=== PATIENT | female | born 1935 | race Caucasian/White ===

== ENCOUNTER 2016-08-21 12:50 | Inpatient (IN) | payer OTHER, MEDICARE ==
[~2016-08-21] VITALS: Ht 170.1 cm; Wt 72.8 kg
--- NOTE | ~2016-08-21 | EKG ---
[place], [place] ELECTROCARDIOGRAM REPORT NAME: MONICO LINK UNIT #: [id number] ROOM: 524 DOCTOR: GARCIA CHRISTENSEN MD BIRTHDATE: [birth year] DOS: 08/21/2016 TIME: 1307 in the afternoon. FINDINGS: Normal sinus rhythm with first degree AV block, left bundle branch block, abnormal electrocardiogram. GARCIA CHRISTENSEN MD CM:EKGRPT:ELECTROCARDIOGRAM REPORT 50 48 GARCIA CHRISTENSEN MD
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
--- NOTE | ~2016-08-21 | PR ---
[place], [place] PROGRESS NOTE NAME: MONICO LINK UNIT #: [id number] ROOM: 524 DOCTOR: GARCIA CHRISTENSEN MD BIRTHDATE: [birth year] DOS: 08/24/2016 SUBJECTIVE: She was seen in the Cardiology Department just prior to her stress test today, 08/24/2016. She is an 81-year-old woman who presented to the hospital on 08/21/2016 with a syncopal episode. She was found to have a left bundle-branch block and did have some chest discomfort prior to admission. On the monitor, she did have frequent PVCs for a short period of time, but these have since resolved. No ventricular tachycardia was seen. Cardiac troponin levels were all normal. PHYSICAL EXAMINATION: VITAL SIGNS: Today, her pulse is 74 and regular; blood pressure is 146/82. She is afebrile now, but did have a temperature of 99 overnight. She weighs 72.8 kilograms with a body mass index of 25.2. NECK: Supple. She has no jugular distention or hepatojugular reflux. CHEST: Clear. HEART: Regular rhythm. There is an S4 gallop present, but no S3. ABDOMEN: Soft. EXTREMITIES: Showed no edema. LABORATORY DATA: Hemoglobin is 11.6, white count 6900, platelet count 176,000. Sodium 143, potassium 3.8, BUN 27, creatinine 1.17. As noted, serial troponin levels have been unremarkable. IMPRESSION: 1. Unexplained syncope. 2. Atypical left bundle branch block pattern. 3. Essential hypertension. 4. Atypical chest pain. PLAN: We will evaluate her further with an echocardiogram and pharmacologic stress test. Further recommendations will depend upon the results of these cardiac studies. [place], [place] PROGRESS NOTE NAME: MONICO LINK UNIT #: [id number] ROOM: 524 DOCTOR: GARCIA CHRISTENSEN MD BIRTHDATE: [birth year] GARCIA CHRISTENSEN MD CM:PNTRANS 1002 [id number] GARCIA CHRISTENSEN MD 08/24/16 1048 interface
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
--- NOTE | ~2016-08-21 | ST ---
[place], [place] EXERCISE STRESS TEST REPORT [id number] UN[facility] #: [id number] ROOM: 524 DOCTOR: GARCIA CHRISTENSEN MD BIRTHDATE: [birth year] DOS: 08/24/2016 INDICATIONS: Syncope, left bundle branch block, precordial chest pain. PROCEDURE: The patient was given a rapid infusion of regadenoson 0.4 mg intravenously followed by a saline flush. She had minimal symptoms. She had an atypical left bundle branch block before, during and after the infusion without significant changes. Her resting heart rate of 75 octavio to 99. The resting blood pressure of 144/82 fell to 128/64. Symptoms resolved spontaneously. After the infusion of regadenoson, she was given radionuclide 40 seconds later. IMPRESSION: 1. Left bundle-branch block. 2. Well tolerated infusion of regadenoson. 3. Radionuclide injected. Please see the separate imaging report for further details of the patient's stress test results. GARCIA CHRISTENSEN MD CM:STRESS:EXERCISE STRESS TEST REPORT [id number] 1031 GARCIA CHRISTENSEN MD
--- NOTE | ~2016-08-21 | EKG ---
[place], [place] ELECTROCARDIOGRAM REPORT NAME: MONICO LINK UNIT #: [id number] ROOM: 524 DOCTOR: GARCIA CHRISTENSEN MD BIRTHDATE: [birth year] DOS: 08/22/2016 TIME: 08:09 in the morning. FINDINGS: Sinus rhythm at rate of 65 with left bundle branch block and secondary ST changes. Abnormal EKG. GARCIA CHRISTENSEN MD CM:EKGRPT:ELECTROCARDIOGRAM REPORT 50 20 GARCIA CHRISTENSEN MD
[2016-08-21 12:57] VITALS: BP 166/80
[2016-08-21 13:28] LABS: BASO # 0.1 10*3/uL (0.0-0.1); EOS # 0.2 10*3/uL (0.0-0.4); EOS % 2.8 % (1.0-4.0); HEMATOCRIT 37.7 % (37.0-47.0); HEMOGLOBIN 12.5 g/dl (12.0-16.0); IG # 0.1 10*3/uL (0.0-0.1); LYMPH # 1.6 10*3/uL (1.3-4.4); LYMPH % 18.6 % (27.0-41.0); MEAN CELL VOLUME 93.1 fl (81.0-99.0); MEAN CORPUSCULAR HGB 30.9 pg (27.0-31.0); MEAN CORPUSCULAR HGB CONC 33.2 g/dl (33.0-37.0); MEAN PLATELET VOLUME 9.9 fl (9.6-12.3); MONO # 0.5 10*3/uL (0.1-1.0); MONO % 6.3 % (3.0-9.0); NEUT # 5.9 10*3/uL (2.3-7.9); NEUT % 70.5 % (47.0-73.0); PLATELET COUNT AUTOMATED 189 10*3/uL (130-400); RED BLOOD COUNT 4.05 10*6/uL (4.10-5.10); RED CELL DISTRI WIDTH 12.7 % (0-14.5); WHITE BLOOD COUNT 8.4 10*3/uL (4.8-10.8)
[2016-08-21 13:37] LABS: PROTHROMBIN TIME 10.8 SECONDS (9.0-12.4)
[2016-08-21 13:45] VITALS: BP 190/68
[2016-08-21 13:49] LABS: ALBUMIN 3.9 gm/dl (3.1-4.5); BUN 33 mg/dl (7-24); CARBON DIOXIDE 28 mmol/L (21-32); CHLORIDE 103 mmol/L (98-107); EST GLOM FILT AFRICAN AMERICAN 51 ml/min; GLUCOSE 102 mg/dL (65-99); MAGNESIUM 1.6 mg/dL (1.5-2.1); POTASSIUM 3.6 mmol/L (3.5-5.1); SGOT/AST 12 IU/L (3-35); SGPT/ALT 15 U/L (12-78); SODIUM 141 mmol/L (136-145)
[2016-08-21 13:51] LABS: ALKALINE PHOSPHATASE 91 U/L (45-117); BILIRUBIN, TOTAL 0.5 mg/dl (0.2-1.0); CKMB 1.7 ng/ml (0.5-3.6); CPK 68 U/L (26-192); TOTAL PROTEIN 7.4 gm/dL (6.4-8.2)
[2016-08-21 13:52] LABS: C-REACTIVE PROTEIN < 0.29 MG/DL (0-0.3); TROPONIN I < 0.015 ng/ml (<0.045)
[2016-08-21 14:53] LABS: BILIRUBIN NEGATIVE (NEGATIVE); BLOOD TRACE-INTACT (NEGATIVE); CLARITY CLOUDY (CLEAR); COLOR YELLOW (YELLOW); GLUCOSE NEGATIVE (NEGATIVE); KETONE NEGATIVE (NEGATIVE); LEUKO ESTERASE 3+ (NEGATIVE); NITRITE NEGATIVE (NEGATIVE); PH 6.5 (5.0-9.0); PROTEIN TRACE (NEGATIVE); UROBILINOGEN 0.2 E.U./dl (0.2-1.0)
[2016-08-21 15:09] LABS: BACTERIA 4+; URINE REFLEX COMMENT YES (NO); WBC 21-30 wbc/hpf (0-5)
[2016-08-21 15:15] VITALS: BP 96/39
[2016-08-21 16:00] VITALS: BP 220/90
[2016-08-21 16:15] VITALS: BP 220/90
[2016-08-21] MEDS ORDERED: GLUCOPHAGE500 M1 PO (16:55)
[2016-08-21] MEDS ORDERED: ENALAPRIL5 MG PO (17:02)
[2016-08-21] MEDS ORDERED: IMDUR SA30 MG PO (17:03)
[2016-08-21] MEDS ORDERED: CARDIZEM CD240 M1 PO (17:03)
[2016-08-21] MEDS ORDERED: ZOCOR40 MG PO (17:04)
[2016-08-21] MEDS ORDERED: TENORETIC-25/501 TAB PO (17:05)
[2016-08-21 18:25] LABS: CKMB 2.6 ng/ml (0.5-3.6); CPK 86 U/L (26-192)
[2016-08-21 18:34] LABS: TROPONIN I < 0.015 ng/ml (<0.045)
[2016-08-21 20:00] VITALS: BP 140/54
[2016-08-22] VITALS: BP 160/65
[2016-08-22 00:25] LABS: CKMB 2.5 ng/ml (0.5-3.6); CPK 74 U/L (26-192)
[2016-08-22 00:29] LABS: TROPONIN I < 0.015 ng/ml (<0.045)
[2016-08-22 06:13] LABS: BASO # 0.1 10*3/uL (0.0-0.1); BASO % 0.6 % (0.0-1.0); EOS # 0.1 10*3/uL (0.0-0.4); EOS % 0.9 % (1.0-4.0); HEMATOCRIT 35.9 % (37.0-47.0); HEMOGLOBIN 11.9 g/dl (12.0-16.0); LYMPH # 1.4 10*3/uL (1.3-4.4); LYMPH % 17.5 % (27.0-41.0); MEAN CELL VOLUME 95.5 fl (81.0-99.0); MEAN CORPUSCULAR HGB 31.6 pg (27.0-31.0); MEAN CORPUSCULAR HGB CONC 33.1 g/dl (33.0-37.0); MEAN PLATELET VOLUME 9.5 fl (9.6-12.3); MONO # 0.6 10*3/uL (0.1-1.0); MONO % 6.8 % (3.0-9.0); NEUT % 73.8 % (47.0-73.0); PLATELET COUNT AUTOMATED 175 10*3/uL (130-400); RED BLOOD COUNT 3.76 10*6/uL (4.10-5.10); RED CELL DISTRI WIDTH 12.6 % (0-14.5); WHITE BLOOD COUNT 8.2 10*3/uL (4.8-10.8)
[2016-08-22 06:27] LABS: CKMB 1.7 ng/ml (0.5-3.6); CPK 72 U/L (26-192)
[2016-08-22 06:35] LABS: TROPONIN I < 0.015 ng/ml (<0.045)
[2016-08-22 06:36] LABS: INTERNATIONAL NORM RATIO 1.1 (2.0-3.5); PROTHROMBIN TIME 11.2 SECONDS (9.0-12.4)
[2016-08-22 06:38] LABS: ALBUMIN 3.3 gm/dl (3.1-4.5); MAGNESIUM 1.5 mg/dL (1.5-2.1); POTASSIUM 3.3 mmol/L (3.5-5.1)
[2016-08-22 06:47] LABS: BILIRUBIN, TOTAL 0.5 mg/dl (0.2-1.0); FREE T4 1.07 ng/dl (0.76-1.46); PHOSPHOROUS 2.9 mg/dL (2.5-4.9); THYROID STIM HORMONE (HS) 1.81 uIU/ml (0.358-4.75); TOTAL PROTEIN 6.6 gm/dL (6.4-8.2)
[2016-08-22 07:19] LABS: HEMOGLOBIN A1c 5.8 % (4.8-5.6)
[2016-08-22 08:00] VITALS: BP 188/70
[2016-08-22 08:13] LABS: FOLIC ACID 13.27 ng/mL (>5.38); VITAMIN D, 25-HYDROXY 43.1 ng/mL (30-100)
[2016-08-22 11:45] VITALS: BP 155/72
[2016-08-22 16:00] VITALS: BP 127/59
[2016-08-22 20:00] VITALS: BP 134/71
[2016-08-23] VITALS (8 sets, daily range): BP systolic 122–185; BP diastolic 61–82
[2016-08-23 08:42] LABS: ALBUMIN 3.6 gm/dl (3.1-4.5); BILIRUBIN, TOTAL 0.6 mg/dl (0.2-1.0); POTASSIUM 3.7 mmol/L (3.5-5.1); TOTAL PROTEIN 7.2 gm/dL (6.4-8.2)
[2016-08-24 00:24] VITALS: BP 138/70
[2016-08-24 00:25] VITALS: BP 160/70
[2016-08-24 06:34] LABS: BASO # 0.1 10*3/uL (0.0-0.1); BASO % 0.9 % (0.0-1.0); EOS # 0.2 10*3/uL (0.0-0.4); HEMATOCRIT 35.5 % (37.0-47.0); HEMOGLOBIN 11.6 g/dl (12.0-16.0); LYMPH # 1.2 10*3/uL (1.3-4.4); LYMPH % 17.2 % (27.0-41.0); MEAN CELL VOLUME 95.4 fl (81.0-99.0); MEAN CORPUSCULAR HGB 31.2 pg (27.0-31.0); MEAN CORPUSCULAR HGB CONC 32.7 g/dl (33.0-37.0); MEAN PLATELET VOLUME 9.7 fl (9.6-12.3); MONO # 0.6 10*3/uL (0.1-1.0); MONO % 8.5 % (3.0-9.0); NEUT # 4.9 10*3/uL (2.3-7.9); PLATELET COUNT AUTOMATED 176 10*3/uL (130-400); RED BLOOD COUNT 3.72 10*6/uL (4.10-5.10); WHITE BLOOD COUNT 6.9 10*3/uL (4.8-10.8)
[2016-08-24 07:02] LABS: POTASSIUM 3.8 mmol/L (3.5-5.1)
[2016-08-24 08:00] VITALS: BP 176/66
[2016-08-24 12:00] VITALS: BP 145/74
== END 2016-08-24 16:10 | disposition home or self-care (01) | DRG 312 ==
LOC: ED 12:50 → 5E 14:55 → EDHOLD 14:55 → 5E 15:20
PROVIDERS: Internal Medicine; Student in an Organized Health Care Education/Training Program
PROC: 3E033HZ Introduction of Radioactive Substance into Peripheral Vein, Percutaneous Approach (ICD-10-PCS; principal; 2016-08-24)
PROC: 4A02XM4 Measurement of Cardiac Total Activity, External Approach (ICD-10-PCS; principal; 2016-08-24)
DX: R55 Syncope and collapse (principal); N17.0 Acute kidney failure with tubular necrosis; R07.82 Intercostal pain; E78.5 Hyperlipidemia, unspecified; I10 Essential (primary) hypertension; E11.9 Type 2 diabetes mellitus without complications; Z96.653 Presence of artificial knee joint, bilateral; I45.4 Nonspecific intraventricular block; V49.9XXA Car occupant (driver) (passenger) injured in unspecified traffic accident, initial encounter; Y93.89 Activity, other specified; Y92.89 Other specified places as the place of occurrence of the external cause; Y99.8 Other external cause status

== ENCOUNTER 2018-06-16 11:38 | Emergency (ER) | payer MEDICARE ==
[~2018-06-16] VITALS: Ht 165.1 cm; Wt 72.6 kg
--- NOTE | ~2018-06-16 | EKG ---
[place], [place] ELECTROCARDIOGRAM REPORT NAME: MONICO LINK UNIT #: [id number] ROOM: DOCTOR: EPIPHANY DRAFT REPORT BIRTHDATE: [birth year] [facility] Test Date: 2018-06-16 Test Time: 15:07:43 Pat Name: MONICO LINK Department: Room: Gender: F Grainer Machine: Jolie Stearns : 1935 Requested By: MARIO DICKSON Order Number: [id number] Reading MD: Travis Billy MD Measurements Intervals [place] Rate: 63 P: 40 [place]: 233 QRS: 5 QRSD: 126 T: 70 QT: 430 QTc: 441 Interpretive Statements Sinus rhythm Prolonged [place] interval First degree block Left bundle branch block No previous ECG available for comparison Electronically Signed On 06-19-2018 4:32:47 PST by Travis Billy MD CM:EKGRPT:ELECTROCARDIOGRAM REPORT [id number] 0432 MARIO ZHANG DRAFT REPORT MARIO DICKSON MD
--- NOTE | ~2018-06-16 | EKG ---
[place], [place] ELECTROCARDIOGRAM REPORT NAME: MONICO LINK UNIT #: [id number] ROOM: DOCTOR: EPIPHANY DRAFT REPORT BIRTHDATE: [birth year] [facility] Test Date: 2018-06-16 Test Time: 12:22:19 Pat Name: MONICO LINK Department: Room: Gender: F Saddle And Side Wire Stitcher: : 1935 Requested By: MARIO DICKSON Order Number: [id number] Reading MD: Travis Billy MD Measurements Intervals [place] Rate: 64 P: 91 [place]: 243 QRS: 4 QRSD: 127 T: 57 QT: 439 QTc: 453 Interpretive Statements Sinus rhythm Prolonged [place] interval First degree block Left bundle branch block No previous ECG available for comparison Electronically Signed On 06-19-2018 4:32:12 PST by Travis Billy MD CM:EKGRPT:ELECTROCARDIOGRAM REPORT [id number] 0432 MARIO DICKSON MD EPIPHDEA DRAFT REPORT MARIO DICKSON MD
[~2018-06-16 11:38] MED LIST: CARDIZEM CD240 M1 PO; ENALAPRIL5 MG PO; GLUCOPHAGE500 M1 PO; IMDUR SA30 MG PO; TENORETIC-25/501 TAB PO; ZOCOR40 MG PO
[2018-06-16 12:11] LABS: BASO # 0.1 10*3/uL (0.0-0.1); BASO % 0.7 % (0.0-1.0); EOS # 0.2 10*3/uL (0.0-0.4); EOS % 2.2 % (1.0-4.0); HEMATOCRIT 33.9 % (37.0-47.0); HEMOGLOBIN 10.8 g/dl (12.0-16.0); LYMPH # 1.4 10*3/uL (1.3-4.4); LYMPH % 18.4 % (27.0-41.0); MEAN CELL VOLUME 99.1 fl (81.0-99.0); MEAN CORPUSCULAR HGB 31.6 pg (27.0-31.0); MEAN CORPUSCULAR HGB CONC 31.9 g/dl (33.0-37.0); MEAN PLATELET VOLUME 9.8 fl (9.6-12.3); MONO # 0.7 10*3/uL (0.1-1.0); MONO % 9.6 % (3.0-9.0); NEUT # 5.1 10*3/uL (2.3-7.9); NEUT % 68.8 % (47.0-73.0); PLATELET COUNT AUTOMATED 188 10*3/uL (130-400); RED BLOOD COUNT 3.42 10*6/uL (4.10-5.10); RED CELL DISTRI WIDTH 13.7 % (0-14.5); WHITE BLOOD COUNT 7.4 10*3/uL (4.8-10.8)
[2018-06-16 12:23] LABS: ACT PARTIAL THROMBO TIME 29.2 SECONDS (20.8-31.5); INTERNATIONAL NORM RATIO 1.1 (2.0-3.5)
[2018-06-16 12:30] LABS: ALBUMIN 3.3 gm/dl (3.1-4.5); ALKALINE PHOSPHATASE 110 U/L (45-117); BUN 36 mg/dl (7-24); CHLORIDE 106 mmol/L (98-107); POTASSIUM 3.8 mmol/L (3.5-5.1); SGOT/AST 12 IU/L (3-35); SGPT/ALT 20 U/L (12-78); SODIUM 143 mmol/L (136-145); TOTAL PROTEIN 7.1 gm/dL (6.4-8.2)
[2018-06-16 12:32] LABS: TROPONIN I < 0.015 ng/ml (<0.045)
[2018-06-16] MEDS ORDERED: ARTHRITIS PAI42.5 GM T (15:27)
[2018-06-16] MEDS ORDERED: VOLTAREN100 GM T (15:27)
== END 2018-06-16 15:19 | disposition home or self-care (01) ==
LOC: ED 11:38
PROVIDERS: Emergency Medicine
DX: M25.512 Pain in left shoulder (principal); R11.0 Nausea; M54.2 Cervicalgia; R06.00 Dyspnea, unspecified; R79.1 Abnormal coagulation profile; E11.9 Type 2 diabetes mellitus without complications; I10 Essential (primary) hypertension; E78.5 Hyperlipidemia, unspecified; Z79.899 Other long term (current) drug therapy; X58.XXXA Exposure to other specified factors, initial encounter; Y93.89 Activity, other specified; Y92.89 Other specified places as the place of occurrence of the external cause; Y99.8 Other external cause status

== ENCOUNTER → 2018-12-15 | Outpatient (CLI) | payer MEDICARE ==
[~2018-12-15] MED LIST changes: +ARTHRITIS PAI42.5 GM T; +VOLTAREN100 GM T
== END | disposition home or self-care (01) ==
LOC: RAD 10:28
DX: M85.862 Other specified disorders of bone density and structure, left lower leg (principal)

== ENCOUNTER 2019-03-04 18:43 | Inpatient (IN) | payer MEDICARE ==
[2019-03-04] VITALS (7 sets, daily range): BP systolic 170–222; BP diastolic 69–98
[~2019-03-04] VITALS: Ht 170.1 cm; Wt 75.5 kg
--- NOTE | ~2019-03-04 | EKG ---
[place], [place] ELECTROCARDIOGRAM REPORT NAME: MOINCO LINK UNIT #: [id number] ROOM: 405 DOCTOR: VICENTE DRAFT REPORT BIRTHDATE: [birth year] [facility] Test Date: 2019-03-04 Test Time: 18:43:16 Pat Name: MONICO LINK Department: Room: 405 Gender: F Director Of Exhibits: : 1935 Requested By: MARIO DICKSON Order Number: [id number] Reading MD: Trina Calloway MD Measurements Intervals [place] Rate: 74 P: -18 [place]: 205 QRS: 7 QRSD: 145 T: 116 QT: 406 QTc: 451 Interpretive Statements Sinus rhythm Left bundle branch block Baseline wander in lead(s) V6 Compared to ECG 06/16/2018 15:07:43 First degree AV block no longer present Electronically Signed On 03-05-2019 7:48:55 PST by Trina Calloway MD CM:EKGRPT:ELECTROCARDIOGRAM REPORT [id number] 0748 MARIO ZHANG DRAFT REPORT MARIO DICKSON MD
--- NOTE | ~2019-03-04 | ST ---
[place], [place] EXERCISE STRESS TEST REPORT [id number] UN[facility] #: [id number] ROOM: 405 DOCTOR: LACEY CEVALLOS,HARSHAD BIRTHDATE: [birth year] DOS: 03/06/2019 LEXISCAN STRESS TEST REFERRING PHYSICIAN: Dr. Padron. REASON FOR TEST: Chest pain. PHYSICAL EXAMINATION NECK: Supple. LUNGS: Clear anteriorly. HEART: Regular rhythm. PROTOCOL: Lexiscan protocol. Maximum heart rate 84. SYMPTOMS: The patient is chest pain free. EKG: Resting EKG showed sinus rhythm with nonspecific lateral T inversion and also poor R-wave progression. Stress EKG showed no new ischemia, occasional PVCs. CONCLUSION: Clinically, the patient is chest pain free. EKG: No ischemia. POST-STRESS COMPLICATIONS: None. The patient received a total of 0.4 mg Lexiscan. HARSHAD RAHMAN MD CM:STRESS:EXERCISE STRESS TEST REPORT [id number] 55 HARSHAD RAHMAN MD
--- NOTE | ~2019-03-04 | EKG ---
[place], [place] ELECTROCARDIOGRAM REPORT NAME: MONICO LINK UNIT #: [id number] ROOM: 405 DOCTOR: VIOLETTEANY DRAFT REPORT BIRTHDATE: [birth year] [facility] Test Date: 2019-03-04 Test Time: 23:12:38 Pat Name: MONICO LINK Department: Room: 405 Gender: F Commercial Energy Rater: : 1935 Requested By: MARIO DICSKON Order Number: [id number] Reading MD: Trina Calloway MD Measurements Intervals [place] Rate: 60 P: -53 RI: 232 QRS: 29 QRSD: 134 T: 149 QT: 387 QTc: 387 Interpretive Statements Sinus or ectopic atrial rhythm Atrial premature complex Prolonged [place] interval Left bundle branch block Compared to ECG 06/16/2018 15:07:43 Ectopic atrial rhythm now present Atrial premature complex(es) now present Sinus rhythm no longer present Electronically Signed On 03-05-2019 7:49:33 PST by Trina Calloway MD CM:EKGRPT:ELECTROCARDIOGRAM REPORT 0749 MARIO DICKSON MD EPIPHANY DRAFT REPORT MARIO DICKSON MD
--- NOTE | ~2019-03-04 | EKG ---
[place], [place] ELECTROCARDIOGRAM REPORT NAME: MONICO LINK UNIT #: [id number] ROOM: 405 DOCTOR: VICENTE DRAFT REPORT BIRTHDATE: [birth year] [facility] Test Date: 2019-03-05 Test Time: 01:16:49 Pat Name: MONICO LINK Department: Room: 405 Gender: F Commissions Coordinator: : 1935 Requested By: MARIO DICKSON Order Number: [id number] Reading MD: Trina Calloway MD Measurements Intervals [place] Rate: 58 P: 19 TN: 227 QRS: 13 QRSD: 138 T: QT: 433 QTc: 426 Interpretive Statements Sinus rhythm Prolonged [place] interval Left bundle branch block Compared to ECG 06/16/2018 15:07:43 No significant changes Electronically Signed On 03-05-2019 5:59:06 PST by Trina Calloway MD CM:EKGRPT:ELECTROCARDIOGRAM REPORT [id number] MARIO ZHANG DRAFT REPORT MARIO DICKSON MD
[2019-03-04 19:00] LABS: BASO # 0.1 10*3/uL (0.0-0.1); BASO % 1.3 % (0.0-1.0); EOS # 0.2 10*3/uL (0.0-0.4); EOS % 3.1 % (1.0-4.0); HEMATOCRIT 38.3 % (37.0-47.0); HEMOGLOBIN 12.1 g/dl (12.0-16.0); LYMPH # 1.7 10*3/uL (1.3-4.4); LYMPH % 25.4 % (27.0-41.0); MEAN CELL VOLUME 98.7 fl (81.0-99.0); MEAN CORPUSCULAR HGB 31.2 pg (27.0-31.0); MEAN CORPUSCULAR HGB CONC 31.6 g/dl (33.0-37.0); MONO # 0.6 10*3/uL (0.1-1.0); MONO % 8.6 % (3.0-9.0); NEUT # 4.1 10*3/uL (2.3-7.9); NEUT % 61.5 % (47.0-73.0); PLATELET COUNT AUTOMATED 198 10*3/uL (130-400); RED BLOOD COUNT 3.88 10*6/uL (4.10-5.10); WHITE BLOOD COUNT 6.7 10*3/uL (4.8-10.8)
[2019-03-04 19:12] LABS: ACT PARTIAL THROMBO TIME 27.9 SECONDS (20.0-32.1)
[2019-03-04 19:17] LABS: ALBUMIN 3.3 gm/dl (3.1-4.5); ALKALINE PHOSPHATASE 101 U/L (45-117); BUN 35 mg/dl (7-24); CHLORIDE 108 mmol/L (98-107); POTASSIUM 3.7 mmol/L (3.5-5.1); SGOT/AST 19 IU/L (3-35); SGPT/ALT 16 U/L (12-78); SODIUM 143 mmol/L (136-145)
[2019-03-04] MEDS ORDERED: ZOCOR40 MG PO (19:17)
[2019-03-04 19:18] LABS: TROPONIN I < 0.015 ng/ml (<0.045)
[2019-03-04] MEDS ORDERED: BAYER ASPIRIN C81 MG PO (19:18)
[2019-03-04] MEDS ORDERED: TYLENOL EXTRA500 M2 PO (19:20)
[2019-03-04] MEDS ORDERED: ELIQUIS5 M1 PO (19:21)
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
[2019-03-05] VITALS: BP 178/86
--- NOTE | 2019-03-05 07:23 | NUR ---
24 HR chart check completed.
[2019-03-05 07:36] LABS: CREATININE 1.1 mg/dL (0.55-1.02); PHOSPHOROUS 3.2 mg/dL (2.5-4.9); POTASSIUM 4.1 mmol/L (3.5-5.1)
[2019-03-05 08:00] VITALS: BP 168/80
--- NOTE | 2019-03-05 08:00 | NUR ---
DR DOMINGO HERE TO ASSESS PATIENT AND DISCUSS PLAN OF CARE. NEW ORDERS RECEIVED
--- NOTE | 2019-03-05 08:14 | NUR ---
MEDICATED WITH ZOFRAN IV PER PRN ORDER FOR COMPLAINTS OF NAUSEA. WILL MONITOR
--- NOTE | 2019-03-05 08:28 | NUR ---
DR REYES HERE TO ASSESS PATIENT AND DISCUSS PLAN OF CARE
--- NOTE | 2019-03-05 09:00 | NUR ---
RESTING IN BED WITH NO DISTRESS NOTED. RESPIRATIONS EASY. LUNGS DIMINISHED WITH FAINT WHEEZES. PULSE OX 94% RA. CALL LIGHT WITHIN REACH. NO VOICED COMPLAINTS
--- NOTE | 2019-03-05 10:40 | NUR ---
TRANSPORTED OFF FLOOR VIA WC FOR TESTING
--- NOTE | 2019-03-05 10:45 | NUR ---
RETURNED FROM TESTING. NO DISTRESS NOTED.
--- NOTE | 2019-03-05 11:00 | NUR ---
ORTHOS CHECKED LAYING 184/78 58 SITTING 180-70 60 STANDING 162/64 61 C/O DIZZINESS AND NAUSEA WITH ANY MOVEMENT
[2019-03-05 12:00] VITALS: BP 160/60
--- NOTE | 2019-03-05 13:00 | NUR ---
RESTING IN BED WITH NO DISTRESS NOTED. RESPIRATIONS EASY. CALL LIGHT WITHIN REACH. NO VOICED COMPLAINTS
[2019-03-05 16:00] VITALS: BP 133/58
--- NOTE | 2019-03-05 18:00 | NUR ---
BATHING IN BATHROOM WITH ASSIST OF DAUGHTER IN LAW
[2019-03-05 20:00] VITALS: BP 137/53
--- NOTE | 2019-03-05 20:25 | NUR ---
PT RESTING IN BED. RESP-EASY AND REGULAR. NO C/O AT THIS TIME. CALL LIGHT IN REACH. TOLERATED ROUTINE MED WITH NO PROBLEM. CALL LIGHT IN REACH. SEE SHIFT ASSESSMENT.
--- NOTE | 2019-03-05 22:00 | NUR ---
RESTING IN BED WITH EYES CLOSED. RESP-EASY AND REGULAR. CALL LIGHT IN REACH.
[2019-03-06] VITALS: BP 124/43
--- NOTE | 2019-03-06 00:15 | NUR ---
PT SLEEPING IN BED. RESP-EASY AND REGULAR. CALL LIGHT IN REACH. SEE SHIFT ASSESSMENT.
--- NOTE | 2019-03-06 03:50 | NUR ---
PT SLEEPING IN BED. RESP-EASY AND REGULAR. CALL LIGHT IN REACH.
--- NOTE | 2019-03-06 06:00 | NUR ---
RESTING IN BED. NO C/O AT THIS TIME. CALL LIGHT IN REACH.
[2019-03-06 06:11] LABS: BASO # 0.1 10*3/uL (0.0-0.1); BASO % 1.2 % (0.0-1.0); EOS # 0.2 10*3/uL (0.0-0.4); HEMATOCRIT 34.6 % (37.0-47.0); LYMPH # 1.6 10*3/uL (1.3-4.4); LYMPH % 27.6 % (27.0-41.0); MEAN CORPUSCULAR HGB 31.2 pg (27.0-31.0); MEAN CORPUSCULAR HGB CONC 31.8 g/dl (33.0-37.0); MEAN PLATELET VOLUME 9.6 fl (9.6-12.3); MONO # 0.5 10*3/uL (0.1-1.0); MONO % 8.1 % (3.0-9.0); NEUT # 3.6 10*3/uL (2.3-7.9); NEUT % 59.9 % (47.0-73.0); PLATELET COUNT AUTOMATED 186 10*3/uL (130-400); RED BLOOD COUNT 3.53 10*6/uL (4.10-5.10)
[2019-03-06 06:37] LABS: ALBUMIN 2.9 gm/dl (3.1-4.5); CREATININE 1.35 mg/dL (0.55-1.02); PHOSPHOROUS 2.8 mg/dL (2.5-4.9); POTASSIUM 3.5 mmol/L (3.5-5.1); TOTAL PROTEIN 6.1 gm/dL (6.4-8.2)
[2019-03-06 08:00] VITALS: BP 156/66
--- NOTE | 2019-03-06 08:55 | NUR ---
PATIENT TAKEN OFF FLOOR FOR STRESS TEST AT THIS TIME.
--- NOTE | 2019-03-06 09:00 | NUR ---
Hematologist Oncologist in to talk to patient. Patient states lives at home with son. There are few steps in the home. Physician: meredith spence Pharmacy: [facility] health services: none Patient's level of ADLs: INDEPENDENT Patient has working utilities: all working DME: cane Follow-up physician's appointment after d/c: will be made by hospitalist nurse director upon discharge Does patient want to access PORTAL?: no Discharge plan discussed with patient, she states he lives at home with her son, she is independent in adls and ambulation, has a cane at home if needed, she states she will return home when medically stable and denies any home needs. RUFINO PAZ
--- NOTE | 2019-03-06 09:43 | NUR ---
INFORMED SIGNED CONSENT OBTAINED FOR LEXISCAN STRESS TEST WITH DR RAHMAN. RESTING EKG LBBB BRADYACARDIA HR 58 BP 130/64. PULSE OX 93% LUNGS CLEAR. PT COMPLETED ONE MINUTE OF A LEXISCAN PROTOCOL WITH PT RECEIVING LEXISCAN 0.4MG IV OVER 10 SECONDS. PVC NOTED, NONDIAGNOSTIC ST CHANGES SEEN. PT C/O DIZZINESS WITH INJECTION. LAST RECOVERY HR OF 79 BP 118/64. PT IN STABLE CONDITION, WAITING WITH HER DAUGHTER FOR IMAGES.
[2019-03-06 12:00] VITALS: BP 172/72
[2019-03-06] MEDS ORDERED: LISINOPRIL10 M1 PO (15:31)
[2019-03-06] MEDS ORDERED: HYGROTON25 MG PO (15:31)
[2019-03-06] MEDS ORDERED: CARVEDILOL3.125 MG PO (15:31)
[2019-03-06 16:00] VITALS: BP 152/78
--- NOTE | 2019-03-06 16:14 | NUR ---
Discharge instructions reviewed with patient/family. Patient receptive and verbalizes understanding. Follow-up care arranged. Written instructions given to patient/family. HEPLOCK DISCONTINUED. PROFESSOR OF COMMUNICATION ARTS DISCONTINUED. PATIENT TAKEN OFF FLOOR VIA WHEELCHAIR. MARCUS TORREZ
== END 2019-03-06 16:14 | disposition home or self-care (01) | DRG 305 ==
LOC: ED 18:43 → EDHOLD 21:41 → 4E 21:41
PROVIDERS: Emergency Medicine; Student in an Organized Health Care Education/Training Program; ADMIT Family Medicine
PROC: 4A02XM4 Measurement of Cardiac Total Activity, External Approach (ICD-10-PCS; principal; 2019-03-06)
PROC: 3E073KZ Introduction of Other Diagnostic Substance into Coronary Artery, Percutaneous Approach (ICD-10-PCS; principal; 2019-03-06)
DX: I16.0 Hypertensive urgency (principal); E44.0 Moderate protein-calorie malnutrition; I50.32 Chronic diastolic (congestive) heart failure; R07.89 Other chest pain; Z96.653 Presence of artificial knee joint, bilateral; I48.91 Unspecified atrial fibrillation; G89.29 Other chronic pain; E78.5 Hyperlipidemia, unspecified; E66.3 Overweight; N18.3 Chronic kidney disease, stage 3 (moderate); I13.0 Hypertensive heart and chronic kidney disease with heart failure and stage 1 through stage 4 chronic kidney disease, or unspecified chronic kidney disease; E87.8 Other disorders of electrolyte and fluid balance, not elsewhere classified; R73.9 Hyperglycemia, unspecified; Z90.49 Acquired absence of other specified parts of digestive tract; Z90.710 Acquired absence of both cervix and uterus; Z79.82 Long term (current) use of aspirin; Z79.899 Other long term (current) drug therapy; Z95.9 Presence of cardiac and vascular implant and graft, unspecified; Z68.26 Body mass index [BMI] 26.0-26.9, adult

== ENCOUNTER 2019-08-30 10:58 | Emergency (ER) | payer MEDICARE ==
[~2019-08-30] VITALS: Ht 167.6 cm; Wt 76.2 kg
[~2019-08-30 10:58] MED LIST changes: +BAYER ASPIRIN C81 MG PO; +CARVEDILOL3.125 MG PO; +ELIQUIS5 M1 PO; +HYGROTON25 MG PO; +LISINOPRIL10 M1 PO; +TYLENOL EXTRA500 M2 PO
== END 2019-08-30 12:00 | disposition home or self-care (01) ==
LOC: ED 10:58
DX: H11.31 Conjunctival hemorrhage, right eye (principal); E11.9 Type 2 diabetes mellitus without complications; I10 Essential (primary) hypertension; Z79.899 Other long term (current) drug therapy; Z90.49 Acquired absence of other specified parts of digestive tract; Z90.710 Acquired absence of both cervix and uterus

== ENCOUNTER → 2019-11-09 | Outpatient (CLI) | payer MEDICARE ==
[2019-11-09 12:23] LABS: BASO # 0.1 10*3/uL (0.0-0.1); EOS # 0.2 10*3/uL (0.0-0.4); EOS % 2.5 % (1.0-4.0); HEMATOCRIT 39.6 % (37.0-47.0); LYMPH # 1.7 10*3/uL (1.3-4.4); LYMPH % 25.3 % (27.0-41.0); MEAN CELL VOLUME 97.8 fl (81.0-99.0); MEAN CORPUSCULAR HGB 30.9 pg (27.0-31.0); MEAN CORPUSCULAR HGB CONC 31.6 g/dl (33.0-37.0); MEAN PLATELET VOLUME 9.7 fl (9.6-12.3); MONO # 0.5 10*3/uL (0.1-1.0); MONO % 7.1 % (3.0-9.0); NEUT # 4.4 10*3/uL (2.3-7.9); NEUT % 63.8 % (47.0-73.0); PLATELET COUNT AUTOMATED 205 10*3/uL (130-400); RED BLOOD COUNT 4.05 10*6/uL (4.10-5.10); RED CELL DISTRI WIDTH 12.8 % (0-14.5); WHITE BLOOD COUNT 6.9 10*3/uL (4.8-10.8)
== END | disposition home or self-care (01) ==
LOC: LAB 12:03
PROVIDERS: Orthopaedic Surgery
DX: I10 Essential (primary) hypertension (principal); M25.569 Pain in unspecified knee

== ENCOUNTER 2019-12-10 20:47 | Emergency (ER) | payer MEDICARE ==
[~2019-12-10] VITALS: Ht 170.1 cm; Wt 74.4 kg
[2019-12-10 21:43] LABS: BASO % 0.2 % (0.0-1.0); EOS # 0.5 10*3/uL (0.0-0.4); EOS % 2.3 % (1.0-4.0); HEMATOCRIT 42.7 % (37.0-47.0); LYMPH # 0.8 10*3/uL (1.3-4.4); MEAN CELL VOLUME 95.1 fl (81.0-99.0); MEAN CORPUSCULAR HGB 31.2 pg (27.0-31.0); MEAN CORPUSCULAR HGB CONC 32.8 g/dl (33.0-37.0); MEAN PLATELET VOLUME 9.6 fl (9.6-12.3); MONO % 4.7 % (3.0-9.0); NEUT # 17.9 10*3/uL (2.3-7.9); NEUT % 88.2 % (47.0-73.0); PLATELET COUNT AUTOMATED 213 10*3/uL (130-400); RED BLOOD COUNT 4.49 10*6/uL (4.10-5.10); RED CELL DISTRI WIDTH 12.1 % (0-14.5); WHITE BLOOD COUNT 20.3 10*3/uL (4.8-10.8)
[2019-12-10 21:55] LABS: INTERNATIONAL NORM RATIO 1.1 (2.0-3.5)
[2019-12-10 22:05] LABS: ALBUMIN 3.7 gm/dl (3.1-4.5); CREATININE 1.23 mg/dL (0.55-1.02); POTASSIUM 3.7 mmol/L (3.5-5.1); TOTAL PROTEIN 7.3 gm/dL (6.4-8.2)
[2019-12-10 22:10] LABS: TROPONIN I 0.105 ng/ml (<0.045)
[2019-12-11 02:17] LABS: BILIRUBIN NEGATIVE (NEGATIVE); BLOOD 3+ (NEGATIVE); CLARITY SL CLOUDY (CLEAR); COLOR YELLOW (YELLOW); GLUCOSE NEGATIVE (NEGATIVE); KETONE NEGATIVE (NEGATIVE); LEUKO ESTERASE NEGATIVE (NEGATIVE); NITRITE NEGATIVE (NEGATIVE); SPECIFIC GRAVITY 1.025 (1.005-1.030); UROBILINOGEN 0.2 E.U./dl (0.2-1.0)
[2019-12-11 02:23] LABS: BACTERIA TRACE; RBC 41-50 rbc/hpf (0-2)
== END 2019-12-11 01:32 | disposition short-term general hospital (02) ==
LOC: ED 20:47
PROVIDERS: Emergency Medicine
DX: S72.002A Fracture of unspecified part of neck of left femur, initial encounter for closed fracture (principal); I48.20 Chronic atrial fibrillation, unspecified; M62.82 Rhabdomyolysis; I13.0 Hypertensive heart and chronic kidney disease with heart failure and stage 1 through stage 4 chronic kidney disease, or unspecified chronic kidney disease; E11.22 Type 2 diabetes mellitus with diabetic chronic kidney disease; I50.9 Heart failure, unspecified; N18.3 Chronic kidney disease, stage 3 (moderate); E78.5 Hyperlipidemia, unspecified; Z79.899 Other long term (current) drug therapy; X58.XXXA Exposure to other specified factors, initial encounter; Y93.89 Activity, other specified; Y92.89 Other specified places as the place of occurrence of the external cause; Y99.8 Other external cause status

== ENCOUNTER 2020-02-17 09:52 | Emergency (ER) | payer MEDICARE ==
[~2020-02-17] VITALS: Ht 170.1 cm; Wt 77.1 kg
[2020-02-17 10:50] LABS: BASO # 0.1 10*3/uL (0.0-0.1); BASO % 0.7 % (0.0-1.0); EOS % 0.4 % (1.0-4.0); HEMATOCRIT 37.1 % (37.0-47.0); LYMPH # 0.7 10*3/uL (1.3-4.4); LYMPH % 10.1 % (27.0-41.0); MEAN CELL VOLUME 96.9 fl (81.0-99.0); MEAN CORPUSCULAR HGB 29.2 pg (27.0-31.0); MEAN CORPUSCULAR HGB CONC 30.2 g/dl (33.0-37.0); MEAN PLATELET VOLUME 9.5 fl (9.6-12.3); MONO # 0.4 10*3/uL (0.1-1.0); MONO % 6.3 % (3.0-9.0); NEUT # 5.8 10*3/uL (2.3-7.9); NEUT % 82.1 % (47.0-73.0); PLATELET COUNT AUTOMATED 216 10*3/uL (130-400); RED BLOOD COUNT 3.83 10*6/uL (4.10-5.10); RED CELL DISTRI WIDTH 14.3 % (0-14.5)
[2020-02-17 11:06] LABS: ACT PARTIAL THROMBO TIME 29.9 SECONDS (20.0-32.1); INTERNATIONAL NORM RATIO 1.2 (2.0-3.5)
[2020-02-17 11:08] LABS: ALBUMIN 3.3 gm/dl (3.1-4.5); ALKALINE PHOSPHATASE 122 U/L (45-117); BUN 21 mg/dl (7-24); CHLORIDE 108 mmol/L (98-107); CPK 32 U/L (26-192); CREATININE 1.12 mg/dL (0.55-1.02); POTASSIUM 3.5 mmol/L (3.5-5.1); SGOT/AST 46 IU/L (3-35); SGPT/ALT 85 U/L (12-78); SODIUM 142 mmol/L (136-145); TOTAL PROTEIN 6.7 gm/dL (6.4-8.2)
[2020-02-17 11:09] LABS: TROPONIN I < 0.015 ng/ml (<0.045)
[2020-02-17 11:51] LABS: BILIRUBIN Negative (Negative); BLOOD Negative (Negative); CLARITY Clear (Clear); COLOR Yellow (Yellow); GLUCOSE Negative (Negative); KETONE Negative (Negative); LEUKO ESTERASE Negative (Negative); NITRITE Negative (Negative)
[2020-02-17 12:11] LABS: BACTERIA TRACE; MUCOUS TRACE
[2020-02-17] MEDS ORDERED: LASIX20 MG PO (14:35)
== END 2020-02-17 14:48 | disposition home or self-care (01) ==
LOC: ED 09:52
PROVIDERS: Emergency Medicine
DX: I31.3 Pericardial effusion (noninflammatory) (principal); J90 Pleural effusion, not elsewhere classified; I71.2 Thoracic aortic aneurysm, without rupture; I13.0 Hypertensive heart and chronic kidney disease with heart failure and stage 1 through stage 4 chronic kidney disease, or unspecified chronic kidney disease; I50.9 Heart failure, unspecified; N18.30 Chronic kidney disease, stage 3 unspecified; I48.91 Unspecified atrial fibrillation; E78.5 Hyperlipidemia, unspecified; Z79.899 Other long term (current) drug therapy

== ENCOUNTER → 2020-06-12 | Outpatient (CLI) | payer MEDICARE ==
[~2020-06-12] MED LIST changes: +LASIX20 MG PO
[2020-06-12 12:44] LABS: BASO # 0.1 10*3/uL (0.0-0.1); BASO % 0.8 % (0.0-1.0); EOS # 0.1 10*3/uL (0.0-0.4); EOS % 1.2 % (1.0-4.0); HEMATOCRIT 38.6 % (37.0-47.0); LYMPH # 1.2 10*3/uL (1.3-4.4); LYMPH % 16.2 % (27.0-41.0); MEAN CELL VOLUME 93.9 fl (81.0-99.0); MEAN CORPUSCULAR HGB 28.2 pg (27.0-31.0); MEAN CORPUSCULAR HGB CONC 30.1 g/dl (33.0-37.0); MEAN PLATELET VOLUME 9.5 fl (9.6-12.3); MONO # 0.5 10*3/uL (0.1-1.0); MONO % 6.4 % (3.0-9.0); NEUT # 5.6 10*3/uL (2.3-7.9); NEUT % 75.1 % (47.0-73.0); PLATELET COUNT AUTOMATED 212 10*3/uL (130-400); RED BLOOD COUNT 4.11 10*6/uL (4.10-5.10); RED CELL DISTRI WIDTH 16.5 % (0-14.5); WHITE BLOOD COUNT 7.4 10*3/uL (4.8-10.8)
== END | disposition home or self-care (01) ==
LOC: LAB 12:14
PROVIDERS: ATTEND Orthopaedic Surgery
DX: I10 Essential (primary) hypertension (principal); M25.569 Pain in unspecified knee; I48.91 Unspecified atrial fibrillation

== ENCOUNTER 2020-06-29 11:10 | Emergency (ER) | payer MEDICARE ==
[~2020-06-29] VITALS: Ht 165.1 cm; Wt 74.8 kg
[2020-06-29 11:50] LABS: BASO # 0.1 10*3/uL (0.0-0.1); BASO % 0.8 % (0.0-1.0); EOS # 0.1 10*3/uL (0.0-0.4); EOS % 0.8 % (1.0-4.0); HEMATOCRIT 39.4 % (37.0-47.0); LYMPH # 0.9 10*3/uL (1.3-4.4); LYMPH % 11.8 % (27.0-41.0); MEAN CELL VOLUME 92.5 fl (81.0-99.0); MEAN CORPUSCULAR HGB 28.2 pg (27.0-31.0); MEAN CORPUSCULAR HGB CONC 30.5 g/dl (33.0-37.0); MONO # 0.4 10*3/uL (0.1-1.0); MONO % 5.4 % (3.0-9.0); NEUT # 6.2 10*3/uL (2.3-7.9); NEUT % 80.9 % (47.0-73.0); PLATELET COUNT AUTOMATED 244 10*3/uL (130-400); RED BLOOD COUNT 4.26 10*6/uL (4.10-5.10); RED CELL DISTRI WIDTH 16.1 % (0-14.5); WHITE BLOOD COUNT 7.6 10*3/uL (4.8-10.8)
[2020-06-29 12:01] LABS: ACT PARTIAL THROMBO TIME 29.1 SECONDS (20.0-32.1); INTERNATIONAL NORM RATIO 1.2 (2.0-3.5)
[2020-06-29 12:07] LABS: ALBUMIN 3.3 gm/dl (3.1-4.5); CREATININE 1.24 mg/dL (0.55-1.02); POTASSIUM 4.1 mmol/L (3.5-5.1); TOTAL PROTEIN 7.2 gm/dL (6.4-8.2); TROPONIN I 0.02 ng/ml (<0.045)
== END 2020-06-29 13:30 | disposition home or self-care (01) ==
LOC: ED 11:10
PROVIDERS: Emergency Medicine
DX: J90 Pleural effusion, not elsewhere classified (principal); I48.20 Chronic atrial fibrillation, unspecified; E11.22 Type 2 diabetes mellitus with diabetic chronic kidney disease; I13.0 Hypertensive heart and chronic kidney disease with heart failure and stage 1 through stage 4 chronic kidney disease, or unspecified chronic kidney disease; N18.30 Chronic kidney disease, stage 3 unspecified; I50.9 Heart failure, unspecified; E78.5 Hyperlipidemia, unspecified; Z79.899 Other long term (current) drug therapy; Z79.82 Long term (current) use of aspirin; Z90.49 Acquired absence of other specified parts of digestive tract; Z90.711 Acquired absence of uterus with remaining cervical stump

== ENCOUNTER → 2020-07-09 | Outpatient (CLI) | payer MEDICARE | END | disposition home or self-care (01) | LOC: RAD 11:05 | PROVIDERS: ATTEND Family Medicine | DX: J90 Pleural effusion, not elsewhere classified (principal); J98.4 Other disorders of lung ==

== ENCOUNTER 2021-08-08 23:32 | Emergency (ER) | payer MEDICARE ==
[~2021-08-08] VITALS: Ht 172.7 cm; Wt 76.0 kg
[2021-08-09 00:55] LABS: BASO # 0.1 10*3/uL (0.0-0.1); BASO % 0.5 % (0.0-1.0); EOS # 0.1 10*3/uL (0.0-0.4); EOS % 0.9 % (1.0-4.0); HEMATOCRIT 38.5 % (37.0-47.0); LYMPH # 0.8 10*3/uL (1.3-4.4); LYMPH % 8.9 % (27.0-41.0); MEAN CELL VOLUME 93.9 fl (81.0-99.0); MEAN CORPUSCULAR HGB 29.5 pg (27.0-31.0); MEAN CORPUSCULAR HGB CONC 31.4 g/dl (33.0-37.0); MEAN PLATELET VOLUME 9.8 fl (9.6-12.3); MONO # 0.8 10*3/uL (0.1-1.0); MONO % 8.9 % (3.0-9.0); NEUT # 7.4 10*3/uL (2.3-7.9); NEUT % 80.6 % (47.0-73.0); PLATELET COUNT AUTOMATED 206 10*3/uL (130-400); RED CELL DISTRI WIDTH 14.6 % (0-14.5); WHITE BLOOD COUNT 9.2 10*3/uL (4.8-10.8)
[2021-08-09 01:10] LABS: INTERNATIONAL NORM RATIO 1.2 (2.0-3.5)
[2021-08-09 01:14] LABS: CREATININE 1.7 mg/dL (0.55-1.02); POTASSIUM 4.6 mmol/L (3.5-5.1)
[2021-08-09] MEDS ORDERED: ULTRAM50 MG PO (04:04)
[2021-08-09] MEDS ORDERED: VIBRAMYCIN100 MG PO (04:15)
== END 2021-08-09 04:38 | disposition home or self-care (01) ==
LOC: ED 23:32
PROVIDERS: Emergency Medicine
DX: S16.1XXA Strain of muscle, fascia and tendon at neck level, initial encounter (principal); J90 Pleural effusion, not elsewhere classified; Z90.49 Acquired absence of other specified parts of digestive tract; Z90.710 Acquired absence of both cervix and uterus; Z98.890 Other specified postprocedural states; Z79.82 Long term (current) use of aspirin; X58.XXXA Exposure to other specified factors, initial encounter; Y93.89 Activity, other specified; Y92.89 Other specified places as the place of occurrence of the external cause; Y99.8 Other external cause status

== ENCOUNTER 2021-09-24 18:14 | Emergency (ER) | payer MEDICARE ==
[~2021-09-24] VITALS: Ht 167.6 cm; Wt 72.6 kg
[~2021-09-24 18:14] MED LIST changes: +ULTRAM50 MG PO; +VIBRAMYCIN100 MG PO
[2021-09-24 18:42] LABS: BASO % 0.6 % (0.0-1.0); EOS # 0.1 10*3/uL (0.0-0.4); EOS % 1.1 % (1.0-4.0); HEMATOCRIT 36.9 % (37.0-47.0); LYMPH # 0.7 10*3/uL (1.3-4.4); LYMPH % 9.6 % (27.0-41.0); MEAN CELL VOLUME 92.9 fl (81.0-99.0); MEAN CORPUSCULAR HGB 29.2 pg (27.0-31.0); MEAN CORPUSCULAR HGB CONC 31.4 g/dl (33.0-37.0); MEAN PLATELET VOLUME 10.1 fl (9.6-12.3); MONO # 0.6 10*3/uL (0.1-1.0); MONO % 7.8 % (3.0-9.0); NEUT # 5.8 10*3/uL (2.3-7.9); NEUT % 80.6 % (47.0-73.0); PLATELET COUNT AUTOMATED 217 10*3/uL (130-400); RED BLOOD COUNT 3.97 10*6/uL (4.10-5.10); WHITE BLOOD COUNT 7.2 10*3/uL (4.8-10.8)
[2021-09-24 18:53] LABS: ACT PARTIAL THROMBO TIME 30.9 SECONDS (20.0-32.1); INTERNATIONAL NORM RATIO 1.2 (2.0-3.5)
[2021-09-24 19:02] LABS: CREATININE 1.44 mg/dL (0.55-1.02); POTASSIUM 3.9 mmol/L (3.5-5.1)
== END 2021-09-24 22:21 | disposition home or self-care (01) ==
LOC: ED 18:14
PROVIDERS: Family Medicine
DX: J90 Pleural effusion, not elsewhere classified (principal); N17.9 Acute kidney failure, unspecified; D64.9 Anemia, unspecified; Z79.899 Other long term (current) drug therapy; Z79.82 Long term (current) use of aspirin; Z90.49 Acquired absence of other specified parts of digestive tract; Z90.710 Acquired absence of both cervix and uterus

== ENCOUNTER → 2021-10-07 | Outpatient (CLI) | payer MEDICARE ==
[~2021-10-07] MED LIST changes: +METOPROLOL SUCC50 M1 PO; +PANTOPRAZOLE SO40 MG PO; +POTASSIUM CHLO20 ME4 PO
[2021-10-07 09:15] LABS: BASO # 0.1 10*3/uL (0.0-0.1); BASO % 0.7 % (0.0-1.0); EOS # 0.1 10*3/uL (0.0-0.4); EOS % 1.6 % (1.0-4.0); HEMATOCRIT 38.6 % (37.0-47.0); LYMPH # 0.8 10*3/uL (1.3-4.4); LYMPH % 11.1 % (27.0-41.0); MEAN CORPUSCULAR HGB 28.7 pg (27.0-31.0); MEAN CORPUSCULAR HGB CONC 30.8 g/dl (33.0-37.0); MEAN PLATELET VOLUME 9.8 fl (9.6-12.3); MONO # 0.6 10*3/uL (0.1-1.0); MONO % 7.5 % (3.0-9.0); NEUT # 5.8 10*3/uL (2.3-7.9); NEUT % 78.7 % (47.0-73.0); PLATELET COUNT AUTOMATED 227 10*3/uL (130-400); RED BLOOD COUNT 4.15 10*6/uL (4.10-5.10); RED CELL DISTRI WIDTH 14.6 % (0-14.5); WHITE BLOOD COUNT 7.4 10*3/uL (4.8-10.8)
[2021-10-07 10:25] LABS: POTASSIUM 3.6 mmol/L (3.5-5.1)
[2021-10-07 10:41] LABS: CREATININE 1.42 mg/dL (0.55-1.02)
== END | disposition home or self-care (01) ==
LOC: LAB 07:50
PROVIDERS: ATTEND Family Medicine
DX: I50.33 Acute on chronic diastolic (congestive) heart failure (principal); J90 Pleural effusion, not elsewhere classified

== ENCOUNTER 2021-10-14 12:55 | Inpatient (IN) | payer MEDICARE ==
[~2021-10-14] VITALS: Ht 172.7 cm; Wt 78.0 kg
[~2021-10-14 12:55] MED LIST changes: -METOPROLOL SUCC50 M1 PO; -PANTOPRAZOLE SO40 MG PO; -POTASSIUM CHLO20 ME4 PO
[2021-10-14 13:11] VITALS: BP 167/90
[2021-10-14 13:49] LABS: BASO % 0.5 % (0.0-1.0); EOS % 0.2 % (1.0-4.0); HEMATOCRIT 37.1 % (37.0-47.0); LYMPH # 0.6 10*3/uL (1.3-4.4); LYMPH % 7.5 % (27.0-41.0); MEAN CELL VOLUME 94.4 fl (81.0-99.0); MEAN CORPUSCULAR HGB 29.5 pg (27.0-31.0); MEAN CORPUSCULAR HGB CONC 31.3 g/dl (33.0-37.0); MEAN PLATELET VOLUME 9.7 fl (9.6-12.3); MONO # 0.5 10*3/uL (0.1-1.0); MONO % 5.5 % (3.0-9.0); NEUT # 7.3 10*3/uL (2.3-7.9); NEUT % 86.1 % (47.0-73.0); PLATELET COUNT AUTOMATED 199 10*3/uL (130-400); RED BLOOD COUNT 3.93 10*6/uL (4.10-5.10); RED CELL DISTRI WIDTH 14.8 % (0-14.5); WHITE BLOOD COUNT 8.5 10*3/uL (4.8-10.8)
[2021-10-14 14:03] LABS: ACT PARTIAL THROMBO TIME 27.1 SECONDS (20.0-32.1); INTERNATIONAL NORM RATIO 1.1 (2.0-3.5)
[2021-10-14 14:09] LABS: BUN 30 mg/dl (7-24); CHLORIDE 107 mmol/L (98-107); CREATININE 1.34 mg/dL (0.55-1.02); LIPASE 173 U/L (73-393); POTASSIUM 4.1 mmol/L (3.5-5.1); SGOT/AST 28 IU/L (3-35); SGPT/ALT 29 U/L (12-78); SODIUM 143 mmol/L (136-145)
[2021-10-14 14:11] LABS: ALKALINE PHOSPHATASE 129 U/L (45-117); TOTAL PROTEIN 6.8 gm/dL (6.4-8.2)
[2021-10-14 15:03] LABS: BILIRUBIN Negative (Negative); BLOOD 1+ (Negative); CLARITY Cloudy (Clear); COLOR Yellow (Yellow); GLUCOSE Negative (Negative); KETONE Negative (Negative); LEUKO ESTERASE 1+ (Negative); NITRITE Negative (Negative); PH 5.5 (4.5-8.0)
[2021-10-14 15:30] LABS: BACTERIA 4+; EPITHELIAL CELLS TNTC; WBC 31-40 wbc/hpf (0-5)
[2021-10-14 16:30] VITALS: BP 170/70
[2021-10-14 16:49] VITALS: BP 113/90
[2021-10-14] MEDS ORDERED: METOPROLOL SUCC50 M1 PO (17:46)
[2021-10-14] MEDS ORDERED: PANTOPRAZOLE SO40 MG PO (17:47)
[2021-10-14] MEDS ORDERED: POTASSIUM CHLO20 ME4 PO (17:48)
[2021-10-14 20:00] VITALS: BP 143/94
[2021-10-15] VITALS: BP 134/86
[2021-10-15 06:06] LABS: CREATININE 1.28 mg/dL (0.55-1.02); FREE T4 1.4 ng/dl (0.76-1.46); POTASSIUM 3.7 mmol/L (3.5-5.1); TOTAL PROTEIN 6.5 gm/dL (6.4-8.2)
[2021-10-15 06:11] LABS: THYROID STIM HORMONE (HS) 1.12 uIU/ml (0.358-4.75)
[2021-10-15 06:31] LABS: BASO # 0.1 10*3/uL (0.0-0.1); BASO % 0.6 % (0.0-1.0); EOS % 0.5 % (1.0-4.0); HEMATOCRIT 36.7 % (37.0-47.0); LYMPH # 0.9 10*3/uL (1.3-4.4); LYMPH % 10.7 % (27.0-41.0); MEAN CELL VOLUME 93.6 fl (81.0-99.0); MEAN CORPUSCULAR HGB 29.6 pg (27.0-31.0); MEAN CORPUSCULAR HGB CONC 31.6 g/dl (33.0-37.0); MEAN PLATELET VOLUME 10.1 fl (9.6-12.3); MONO # 0.7 10*3/uL (0.1-1.0); MONO % 8.4 % (3.0-9.0); NEUT # 6.5 10*3/uL (2.3-7.9); NEUT % 79.6 % (47.0-73.0); PLATELET COUNT AUTOMATED 206 10*3/uL (130-400); RED BLOOD COUNT 3.92 10*6/uL (4.10-5.10); RED CELL DISTRI WIDTH 14.7 % (0-14.5); WHITE BLOOD COUNT 8.2 10*3/uL (4.8-10.8)
[2021-10-15 08:00] VITALS: BP 120/80; BP 148/86
[2021-10-15 12:00] VITALS: BP 136/68
[2021-10-15 16:00] VITALS: BP 160/90
[2021-10-15 20:00] VITALS: BP 132/60; BP 142/67
[2021-10-15 22:00] VITALS: BP 140/66
[2021-10-16] VITALS (8 sets, daily range): BP systolic 118–146; BP diastolic 62–86
[2021-10-16 06:19] LABS: BASO % 0.5 % (0.0-1.0); EOS # 0.1 10*3/uL (0.0-0.4); EOS % 1.9 % (1.0-4.0); HEMATOCRIT 34.5 % (37.0-47.0); LYMPH # 0.7 10*3/uL (1.3-4.4); LYMPH % 11.8 % (27.0-41.0); MEAN CELL VOLUME 92.5 fl (81.0-99.0); MEAN CORPUSCULAR HGB 29.2 pg (27.0-31.0); MEAN CORPUSCULAR HGB CONC 31.6 g/dl (33.0-37.0); MEAN PLATELET VOLUME 9.9 fl (9.6-12.3); MONO # 0.6 10*3/uL (0.1-1.0); MONO % 9.6 % (3.0-9.0); NEUT # 4.8 10*3/uL (2.3-7.9); NEUT % 75.9 % (47.0-73.0); PLATELET COUNT AUTOMATED 189 10*3/uL (130-400); RED BLOOD COUNT 3.73 10*6/uL (4.10-5.10); RED CELL DISTRI WIDTH 14.9 % (0-14.5); WHITE BLOOD COUNT 6.3 10*3/uL (4.8-10.8)
[2021-10-16 06:31] LABS: CREATININE 1.28 mg/dL (0.55-1.02); POTASSIUM 3.2 mmol/L (3.5-5.1)
[2021-10-17] VITALS: BP 135/75
[2021-10-17 06:24] LABS: BASO # 0.1 10*3/uL (0.0-0.1); BASO % 0.9 % (0.0-1.0); EOS # 0.2 10*3/uL (0.0-0.4); EOS % 2.5 % (1.0-4.0); HEMATOCRIT 36.6 % (37.0-47.0); LYMPH # 0.8 10*3/uL (1.3-4.4); LYMPH % 9.9 % (27.0-41.0); MEAN CELL VOLUME 92.9 fl (81.0-99.0); MEAN CORPUSCULAR HGB 28.9 pg (27.0-31.0); MEAN CORPUSCULAR HGB CONC 31.1 g/dl (33.0-37.0); MEAN PLATELET VOLUME 9.8 fl (9.6-12.3); MONO # 0.7 10*3/uL (0.1-1.0); MONO % 8.9 % (3.0-9.0); NEUT # 6.2 10*3/uL (2.3-7.9); NEUT % 77.4 % (47.0-73.0); PLATELET COUNT AUTOMATED 212 10*3/uL (130-400); RED BLOOD COUNT 3.94 10*6/uL (4.10-5.10); RED CELL DISTRI WIDTH 14.6 % (0-14.5)
[2021-10-17 06:33] LABS: CREATININE 1.22 mg/dL (0.55-1.02); POTASSIUM 3.5 mmol/L (3.5-5.1)
[2021-10-17 08:00] VITALS: BP 142/84
[2021-10-17] MEDS ORDERED: LASIX20 MG PO (09:16)
[2021-10-17] MEDS ORDERED: CEPHALEXIN500 M1 PO (09:17)
[2021-10-17 12:00] VITALS: BP 120/89
== END 2021-10-17 13:10 | disposition home or self-care (01) | DRG 291 ==
LOC: ED 12:55 → 4E 15:51 → EDHOLD 15:51 → 4E 16:14
PROVIDERS: Emergency Medicine; Internal Medicine; Student in an Organized Health Care Education/Training Program; ADMIT Internal Medicine; ATTEND Internal Medicine
DX: I13.0 Hypertensive heart and chronic kidney disease with heart failure and stage 1 through stage 4 chronic kidney disease, or unspecified chronic kidney disease (principal); I50.33 Acute on chronic diastolic (congestive) heart failure; N39.0 Urinary tract infection, site not specified; I48.19 Other persistent atrial fibrillation; Z51.5 Encounter for palliative care; Z66 Do not resuscitate; N18.32 Chronic kidney disease, stage 3b; R31.9 Hematuria, unspecified; D64.9 Anemia, unspecified; E78.5 Hyperlipidemia, unspecified; R73.9 Hyperglycemia, unspecified; Z79.899 Other long term (current) drug therapy; Z79.1 Long term (current) use of non-steroidal anti-inflammatories (NSAID)

== ENCOUNTER 2021-12-14 03:18 | Emergency (ER) | payer MEDICARE ==
[~2021-12-14] VITALS: Wt 78.7 kg
[~2021-12-14 03:18] MED LIST changes: +CEPHALEXIN500 M1 PO; +METOPROLOL SUCC50 M1 PO; +PANTOPRAZOLE SO40 MG PO; +POTASSIUM CHLO20 ME4 PO
[2021-12-14] MEDS ORDERED: MECLIZINE HCL25 M2 PO (05:56)
[2021-12-14] MEDS ORDERED: ONDANSETRON4 MG SL (05:56)
[2021-12-26] MEDS ORDERED: METOPROLOL SUC100 M1 PO (12:35)
[2021-12-26] MEDS ORDERED: LOSARTAN POTASS25 M1 PO (12:35)
[2021-12-26] MEDS ORDERED: OMNICEF300 MG PO (12:35)
[2021-12-26] MEDS ORDERED: POTASSIUM CHLO20 ME4 PO (12:35)
== END 2021-12-14 05:59 | disposition home or self-care (01) ==
LOC: ED 03:18
DX: H81.10 Benign paroxysmal vertigo, unspecified ear (principal); Z79.899 Other long term (current) drug therapy

== ENCOUNTER 2022-02-02 11:05 | Emergency (ER) | payer MEDICARE ==
[~2022-02-02] VITALS: Ht 167.6 cm; Wt 79.8 kg
[~2022-02-02 11:05] MED LIST changes: +LOSARTAN POTASS25 M1 PO; +MECLIZINE HCL25 M2 PO; +METOPROLOL SUC100 M1 PO; +OMNICEF300 MG PO; +ONDANSETRON4 MG SL
[2022-02-02 11:31] LABS: BASO # 0.1 10*3/uL (0.0-0.1); BASO % 0.9 % (0.0-1.0); EOS # 0.1 10*3/uL (0.0-0.4); EOS % 2.1 % (1.0-4.0); HEMATOCRIT 35.1 % (37.0-47.0); LYMPH # 0.7 10*3/uL (1.3-4.4); LYMPH % 12.8 % (27.0-41.0); MEAN CELL VOLUME 97.5 fl (81.0-99.0); MEAN CORPUSCULAR HGB 28.6 pg (27.0-31.0); MEAN CORPUSCULAR HGB CONC 29.3 g/dl (33.0-37.0); MEAN PLATELET VOLUME 10.7 fl (9.6-12.3); MONO # 0.4 10*3/uL (0.1-1.0); MONO % 7.7 % (3.0-9.0); NEUT # 4.1 10*3/uL (2.3-7.9); NEUT % 76.3 % (47.0-73.0); PLATELET COUNT AUTOMATED 177 10*3/uL (130-400); RED CELL DISTRI WIDTH 18.4 % (0-14.5); WHITE BLOOD COUNT 5.3 10*3/uL (4.8-10.8)
[2022-02-02] MEDS ORDERED: VISTARIL25 MG PO (11:34)
[2022-02-02] MEDS ORDERED: RIVASTIGMINE T1.5 M1 PO (11:34)
[2022-02-02] MEDS ORDERED: MIRALAX17 GM PO (11:35)
[2022-02-02] MEDS ORDERED: METFORMIN HYDR500 MG PO (11:36)
[2022-02-02] MEDS ORDERED: ONDANSETRON4 MG PO (11:36)
[2022-02-02] MEDS ORDERED: LOSARTAN POTASS25 M1 PO (11:38)
[2022-02-02] MEDS ORDERED: VITAMIN D375 MCG PO (11:38)
[2022-02-02] MEDS ORDERED: POTASSIUM CHLO10 ME4 PO (11:39)
[2022-02-02] MEDS ORDERED: METOPROLOL SUC100 M1 PO (11:40)
[2022-02-02] MEDS ORDERED: PROTONIX40 MG PO (11:40)
[2022-02-02] MEDS ORDERED: ELIQUIS5 M1 PO (11:41)
[2022-02-02] MEDS ORDERED: LASIX20 MG PO (11:42)
[2022-02-02] MEDS ORDERED: TYLOPHEN500 M2 PO (11:42)
[2022-02-02] MEDS ORDERED: GOOD NEIGHBOR M25 M1 PO (11:43)
[2022-02-02 11:46] LABS: ACT PARTIAL THROMBO TIME 30.2 SECONDS (20.0-32.1); INTERNATIONAL NORM RATIO 1.2 (2.0-3.5)
[2022-02-02 11:58] LABS: BUN 36 mg/dl (7-24); CHLORIDE 105 mmol/L (98-107); LIPASE 279 U/L (73-393); POTASSIUM 4.7 mmol/L (3.5-5.1); SGOT/AST 17 IU/L (3-35); SGPT/ALT 17 U/L (12-78); SODIUM 143 mmol/L (136-145)
[2022-02-02] MEDS ORDERED: CRANBERRY200 MG PO (11:58)
[2022-02-02 12:00] LABS: ALKALINE PHOSPHATASE 85 U/L (45-117); TOTAL PROTEIN 6.1 gm/dL (6.4-8.2)
[2022-02-02 19:09] LABS: BILIRUBIN Negative (Negative); BLOOD Negative (Negative); CLARITY Cloudy (Clear); COLOR Yellow (Yellow); GLUCOSE Negative (Negative); KETONE Negative (Negative); LEUKO ESTERASE Negative (Negative); NITRITE Negative (Negative); PH 5.5 (4.5-8.0); UROBILINOGEN 0.2 E.U./dl (0.0-1.0)
[2022-02-02 19:23] LABS: BACTERIA TRACE; EPITHELIAL CELLS TNTC; WBC 0-2 wbc/hpf (0-5)
== END 2022-02-02 22:45 ==
LOC: ED 11:05
PROVIDERS: Emergency Medicine
DX: F63.81 Intermittent explosive disorder (principal); Z20.822 Contact with and (suspected) exposure to COVID-19; Z90.49 Acquired absence of other specified parts of digestive tract; Z90.710 Acquired absence of both cervix and uterus; Z96.653 Presence of artificial knee joint, bilateral; Z79.899 Other long term (current) drug therapy

== ENCOUNTER 2022-02-02 11:28 | Inpatient (IN) | payer MEDICARE ==
[~2022-02-02] VITALS: Ht 157.4 cm; Wt 94.3 kg
[2022-02-02] MEDS ORDERED: RIVASTIGMINE T1.5 M1 PO (11:34)
[2022-02-02] MEDS ORDERED: VISTARIL25 MG PO (11:34)
[2022-02-02] MEDS ORDERED: MIRALAX17 GM PO (11:35)
[2022-02-02] MEDS ORDERED: ONDANSETRON4 MG PO (11:36)
[2022-02-02] MEDS ORDERED: METFORMIN HYDR500 MG PO (11:36)
[2022-02-02] MEDS ORDERED: VITAMIN D375 MCG PO (11:38)
[2022-02-02] MEDS ORDERED: LOSARTAN POTASS25 M1 PO (11:38)
[2022-02-02] MEDS ORDERED: POTASSIUM CHLO10 ME4 PO (11:39)
[2022-02-02] MEDS ORDERED: PROTONIX40 MG PO (11:40)
[2022-02-02] MEDS ORDERED: METOPROLOL SUC100 M1 PO (11:40)
[2022-02-02] MEDS ORDERED: ELIQUIS5 M1 PO (11:41)
[2022-02-02] MEDS ORDERED: TYLOPHEN500 M2 PO (11:42)
[2022-02-02] MEDS ORDERED: LASIX20 MG PO (11:42)
[2022-02-02] MEDS ORDERED: GOOD NEIGHBOR M25 M1 PO (11:43)
[2022-02-02] MEDS ORDERED: CRANBERRY200 MG PO (11:58)
[2022-02-03 01:57] VITALS: BP 113/66
[2022-02-03 07:42] VITALS: BP 129/87
[2022-02-03 07:45] LABS: BASO % 0.9 % (0.0-1.0); EOS # 0.1 10*3/uL (0.0-0.4); EOS % 2.9 % (1.0-4.0); HEMATOCRIT 35.5 % (37.0-47.0); LYMPH # 0.7 10*3/uL (1.3-4.4); LYMPH % 14.3 % (27.0-41.0); MEAN CELL VOLUME 95.9 fl (81.0-99.0); MEAN CORPUSCULAR HGB 28.1 pg (27.0-31.0); MEAN CORPUSCULAR HGB CONC 29.3 g/dl (33.0-37.0); MEAN PLATELET VOLUME 10.5 fl (9.6-12.3); MONO # 0.5 10*3/uL (0.1-1.0); MONO % 9.9 % (3.0-9.0); NEUT # 3.3 10*3/uL (2.3-7.9); NEUT % 71.6 % (47.0-73.0); PLATELET COUNT AUTOMATED 181 10*3/uL (130-400); RED CELL DISTRI WIDTH 18.6 % (0-14.5); WHITE BLOOD COUNT 4.6 10*3/uL (4.8-10.8)
[2022-02-03 08:11] LABS: CREATININE 1.68 mg/dL (0.55-1.02); POTASSIUM 4.2 mmol/L (3.5-5.1)
[2022-02-03 08:17] LABS: THYROID STIM HORMONE (HS) 1.47 uIU/ml (0.358-4.75)
[2022-02-03 08:40] LABS: VITAMIN D, 25-HYDROXY 32.6 ng/mL (30-100)
[2022-02-03 20:00] VITALS: BP 128/70
[2022-02-04 08:00] VITALS: BP 136/90
[2022-02-04 20:00] VITALS: BP 140/88
[2022-02-05 07:10] LABS: BASO % 0.5 % (0.0-1.0); EOS # 0.1 10*3/uL (0.0-0.4); HEMATOCRIT 37.8 % (37.0-47.0); LYMPH # 0.8 10*3/uL (1.3-4.4); LYMPH % 14.2 % (27.0-41.0); MEAN CELL VOLUME 96.9 fl (81.0-99.0); MEAN CORPUSCULAR HGB 28.2 pg (27.0-31.0); MEAN CORPUSCULAR HGB CONC 29.1 g/dl (33.0-37.0); MEAN PLATELET VOLUME 10.7 fl (9.6-12.3); MONO # 0.4 10*3/uL (0.1-1.0); NEUT # 4.1 10*3/uL (2.3-7.9); NEUT % 74.9 % (47.0-73.0); PLATELET COUNT AUTOMATED 174 10*3/uL (130-400); RED CELL DISTRI WIDTH 18.6 % (0-14.5); WHITE BLOOD COUNT 5.5 10*3/uL (4.8-10.8)
[2022-02-05 07:30] LABS: CREATININE 1.81 mg/dL (0.55-1.02); POTASSIUM 4.4 mmol/L (3.5-5.1)
[2022-02-05 08:00] VITALS: BP 128/82
[2022-02-05 13:32] LABS: BILIRUBIN Negative (Negative); BLOOD Trace-Lysed (Negative); CLARITY Cloudy (Clear); COLOR Yellow (Yellow); GLUCOSE Negative (Negative); KETONE Negative (Negative); LEUKO ESTERASE 3+ (Negative); NITRITE Negative (Negative); PH 5.5 (4.5-8.0); SPECIFIC GRAVITY 1.015 (1.001-1.030)
[2022-02-05 13:42] LABS: BACTERIA 4+; EPITHELIAL CELLS TNTC; RBC 0-2 rbc/hpf (0-2); WBC TNTC wbc/hpf (0-5)
[2022-02-05 20:00] VITALS: BP 120/80
[2022-02-06 07:18] VITALS: BP 133/86
[2022-02-06 20:00] VITALS: BP 137/80
[2022-02-07 07:16] VITALS: BP 120/62
[2022-02-07 20:00] VITALS: BP 102/76
[2022-02-08 06:58] VITALS: BP 127/87
[2022-02-08 09:55] LABS: BASO # 0.1 10*3/uL (0.0-0.1); BASO % 0.8 % (0.0-1.0); EOS # 0.1 10*3/uL (0.0-0.4); EOS % 1.7 % (1.0-4.0); HEMATOCRIT 35.2 % (37.0-47.0); LYMPH # 0.7 10*3/uL (1.3-4.4); LYMPH % 10.1 % (27.0-41.0); MEAN CELL VOLUME 96.2 fl (81.0-99.0); MEAN CORPUSCULAR HGB 28.4 pg (27.0-31.0); MEAN CORPUSCULAR HGB CONC 29.5 g/dl (33.0-37.0); MEAN PLATELET VOLUME 10.3 fl (9.6-12.3); MONO # 0.5 10*3/uL (0.1-1.0); MONO % 7.5 % (3.0-9.0); NEUT # 5.2 10*3/uL (2.3-7.9); NEUT % 79.6 % (47.0-73.0); PLATELET COUNT AUTOMATED 201 10*3/uL (130-400); RED BLOOD COUNT 3.66 10*6/uL (4.10-5.10); RED CELL DISTRI WIDTH 18.9 % (0-14.5); WHITE BLOOD COUNT 6.5 10*3/uL (4.8-10.8)
[2022-02-08 10:12] LABS: CREATININE 2.04 mg/dL (0.55-1.02); POTASSIUM 4.2 mmol/L (3.5-5.1); TOTAL PROTEIN 6.2 gm/dL (6.4-8.2)
[2022-02-08 20:00] VITALS: BP 108/68
[2022-02-09 07:15] LABS: CREATININE 1.95 mg/dL (0.55-1.02); POTASSIUM 4.1 mmol/L (3.5-5.1)
[2022-02-09 07:48] VITALS: BP 113/73
[2022-02-09] MEDS ORDERED: MIRTAZAPINE15 M2 PO (09:43)
[2022-02-09] MEDS ORDERED: MEMANTINE HCL10 MG PO (09:43)
[2022-02-09] MEDS ORDERED: RIVASTIGMINE T1.5 M1 PO (09:43)
[2022-02-09] MEDS ORDERED: CIPROFLOXACIN250 MG PO (11:21)
== END 2022-02-09 12:36 | DRG 885 ==
LOC: 3N 11:28
PROVIDERS: Counselor Professional; Internal Medicine; ADMIT Psychiatry & Neurology Psychiatry; ATTEND Psychiatry & Neurology Psychiatry
PROC: GZHZZZZ Group Psychotherapy (ICD-10-PCS; principal; 2022-02-03)
PROC: GZ56ZZZ Individual Psychotherapy, Supportive (ICD-10-PCS; 2022-02-03)
DX: F33.9 Major depressive disorder, recurrent, unspecified (principal); F63.81 Intermittent explosive disorder; N17.0 Acute kidney failure with tubular necrosis; N18.9 Chronic kidney disease, unspecified; I50.32 Chronic diastolic (congestive) heart failure; I13.0 Hypertensive heart and chronic kidney disease with heart failure and stage 1 through stage 4 chronic kidney disease, or unspecified chronic kidney disease; G30.9 Alzheimer's disease, unspecified; F02.80 Dementia in other diseases classified elsewhere, unspecified severity, without behavioral disturbance, psychotic disturbance, mood disturbance, and anxiety; I48.91 Unspecified atrial fibrillation; E78.5 Hyperlipidemia, unspecified; Z96.653 Presence of artificial knee joint, bilateral; D72.819 Decreased white blood cell count, unspecified; D64.9 Anemia, unspecified; N18.30 Chronic kidney disease, stage 3 unspecified; R73.9 Hyperglycemia, unspecified; R73.03 Prediabetes; Z66 Do not resuscitate; S31.103A Unspecified open wound of abdominal wall, right lower quadrant without penetration into peritoneal cavity, initial encounter; Z90.710 Acquired absence of both cervix and uterus; Z90.49 Acquired absence of other specified parts of digestive tract; X58.XXXA Exposure to other specified factors, initial encounter; Y93.89 Activity, other specified; Y92.89 Other specified places as the place of occurrence of the external cause; Y99.8 Other external cause status